=== PATIENT | female | born 1995 | race Asian ===

== ENCOUNTER 2018-07-24 12:34 | Outpatient (CLI) | payer OTHER | END 2018-07-24 17:25 | disposition home or self-care (01) | LOC: OBT 12:34 → L-D 12:35 → OBT 17:25 | DX: O62.9 Abnormality of forces of labor, unspecified (principal); Z3A.39 39 weeks gestation of pregnancy | CPT/HCPCS: 76815; 76818 ==

== ENCOUNTER 2018-07-25 05:01 | Inpatient (IN) | payer OTHER ==
[2018-07-25] MEDS ORDERED: LACTATED RINGER'S 1,000 ML IV (05:10)
[2018-07-25] MEDS ORDERED: LIDOCAINE 1% (MPF) 30 ML INJ (05:22)
[2018-07-25] MEDS: LACTATED RINGER'S 1,000 ML IV (05:25)
[2018-07-25] MEDS ORDERED: CARBOPROST 250 MCG INJ IM ×2 (05:30→09:00)
[2018-07-25] MEDS ORDERED: AMPICILLIN 2 GM/NS (PMX) 100 ML IV (05:30)
[2018-07-25] MEDS ORDERED: OXYTOCIN 30 UNITS/LR 500 ML IV ×2 (05:30→09:00)
[2018-07-25] MEDS ORDERED: MISOPROSTOL 200 MCG TAB PR ×2 (05:30→09:00)
[2018-07-25] MEDS ORDERED: METHYLERGONOVINE 0.2 MG INJ IM ×2 (05:30→09:00)
[2018-07-25 05:33] LABS: ADD MAN DIFF? NO
[2018-07-25 05:47] LABS: WHITE BLOOD COUNT 17.7 10^3/ul (4.8-10.8)
[2018-07-25 05:47] LABS: BASOPHILS % 0.2 % (0.0-2.0); EOSINOPHILS % 0.1 % (0.0-7.0); HEMATOCRIT 35.3 % (37.0-47.0); HEMOGLOBIN 11.4 g/dl (12.0-16.0); LYMPHOCYTES # 1.2 10^3/ul (0.8-2.9); LYMPHOCYTES % 6.8 % (15.0-51.0); MEAN CORPUSCULAR HEMOGLOBIN 27.1 pg (29.0-33.0); MEAN CORPUSCULAR HGB CONC 32.3 g/dl (32.0-37.0); MEAN PLATELET VOLUME 10.5 fl (7.4-10.4); MONOCYTE # 0.5 10^3/ul (0.3-0.9); NEUTROPHIL # 15.8 10^3/ul (1.6-7.5); NEUTROPHILS % 89.2 % (39.0-77.0); PLATELET COUNT 316 10^3/UL (140-415); RED CELL DISTRIBUTION WIDTH 19.2 % (11.5-14.5)
[2018-07-25 06:02] LABS: INR 0.94; PROTIME 12.7 Sec (11.9-14.9)
[2018-07-25 06:03] LABS: PARTIAL THROMBOPLASTIN TIME 22.7 Sec (23.0-35.0)
[2018-07-25] MEDS: OXYTOCIN 30 UNITS/LR 500 ML IV ×2 (06:03→06:15)
[2018-07-25] MEDS: LIDOCAINE 1% (MPF) 30 ML INJ INJ (06:17)
[2018-07-25] MEDS: MINERAL OIL LIGHT 10 ML VIAL TOP (06:17)
[2018-07-25 06:39] LABS: HEPATITIS B SURFACE ANTIGEN NEGATIVE (NEGATIVE)
[2018-07-25] MEDS: IBUPROFEN 600 MG TAB PO ×4 (07:16→23:35)
[2018-07-25] MEDS ORDERED: ACETAMINOPHEN 325 MG TAB PO (09:00)
[2018-07-25] MEDS ORDERED: HYDROCODONE/APAP (5/325) TAB PO (09:00)
[2018-07-25] MEDS ORDERED: DIBUCAINE 1% 30 GM OINT TOP (09:00)
[2018-07-25] MEDS ORDERED: AMPICILLIN 1 GM/NS (PMX) 50 ML IV (09:30)
[2018-07-25] MEDS: LANOLIN 7 GM TUBE TOP (11:32)
[2018-07-25] MEDS: WITCH HAZEL/GLYCERIN PAD PR (11:32)
[2018-07-25] MEDS: BENZOCAINE 20% 56 ML SPRAY TOP (11:33)
[2018-07-25] MEDS: LACTATED RINGER'S 1,000 ML IV* ×2 (12:50→19:00)
[2018-07-25] MEDS: SENNA/DOCUSATE NA (8.6MG/50MG) TAB PO ×2 (19:00→20:42)
[2018-07-25 20:52] LABS: RAPID PLASMA REAGIN NONREACTIVE (NR)
[2018-07-26] MEDS: IBUPROFEN 600 MG TAB PO ×3 (05:34→17:27)
[2018-07-26 08:07] LABS: ADD MAN DIFF? NO
[2018-07-26 08:09] LABS: BASOPHILS % 0.3 % (0.0-2.0); EOSINOPHILS # 0.2 10^3/ul (0.0-0.5); EOSINOPHILS % 1.6 % (0.0-7.0); HEMATOCRIT 30.2 % (37.0-47.0); HEMOGLOBIN 9.5 g/dl (12.0-16.0); LYMPHOCYTES # 2.8 10^3/ul (0.8-2.9); LYMPHOCYTES % 20.9 % (15.0-51.0); MEAN CORPUSCULAR HEMOGLOBIN 26.8 pg (29.0-33.0); MEAN CORPUSCULAR HGB CONC 31.5 g/dl (32.0-37.0); MEAN CORPUSCULAR VOLUME 85.1 fl (82.0-101.0); MEAN PLATELET VOLUME 10.8 fl (7.4-10.4); MONOCYTE # 0.9 10^3/ul (0.3-0.9); MONOCYTES % 6.7 % (0.0-11.0); NEUTROPHIL # 9.3 10^3/ul (1.6-7.5); NEUTROPHILS % 69.8 % (39.0-77.0); PLATELET COUNT 259 10^3/UL (140-415); RED BLOOD COUNT 3.55 10^6/ul (4.20-5.40); RED CELL DISTRIBUTION WIDTH 19.9 % (11.5-14.5)
[2018-07-26 08:09] LABS: WHITE BLOOD COUNT 13.4 10^3/ul (4.8-10.8)
[2018-07-26] MEDS: SENNA/DOCUSATE NA (8.6MG/50MG) TAB PO ×2 (08:33→22:03)
[2018-07-26] MEDS: FERROUS SULFATE (EC) 325 MG TAB PO ×2 (12:06→22:02)
[2018-07-27] MEDS: IBUPROFEN 600 MG TAB PO ×4 (00:35→17:18)
[2018-07-27] MEDS: SENNA/DOCUSATE NA (8.6MG/50MG) TAB PO (08:34)
[2018-07-27] MEDS: FERROUS SULFATE (EC) 325 MG TAB PO ×2 (08:34→12:18)
[2018-07-27] MEDS: DIPHTH/TET/ACEL PERTUSS (ADULT) 0.5 ML VIAL IM* (12:22)
== END 2018-07-27 18:15 | disposition home or self-care (01) | DRG 807 ==
LOC: OBT 05:01 → L-D 05:02 → OBT 05:05 → L-D 05:05 → PP1 07:50
PROVIDERS: Obstetrics & Gynecology
PROC: 10E0XZZ Delivery of Products of Conception, External Approach (ICD-10-PCS; principal; 2018-07-25)
PROC: 0KQM0ZZ Repair Perineum Muscle, Open Approach (ICD-10-PCS; 2018-07-25)
DX: O69.81X0 Labor and delivery complicated by cord around neck, without compression, not applicable or unspecified (principal); Z37.0 Single live birth; O70.1 Second degree perineal laceration during delivery; Z3A.39 39 weeks gestation of pregnancy
CPT/HCPCS: 85025; 85610; 85730; 86592; 86850; 86900; 86901; 87340; 90686; 90715

== ENCOUNTER 2018-09-15 19:33 | Emergency (ER) | payer OTHER ==
[2018-09-15] MEDS: ACETAMINOPHEN 500 MG TAB PO (21:06)
== END 2018-09-15 21:13 | disposition home or self-care (01) ==
LOC: FTE 19:33
DX: H01.00A Unspecified blepharitis right eye, upper and lower eyelids (principal); L08.9 Local infection of the skin and subcutaneous tissue, unspecified; H10.9 Unspecified conjunctivitis; H00.011 Hordeolum externum right upper eyelid; H00.012 Hordeolum externum right lower eyelid
CPT/HCPCS: 99283; Z7610

== ENCOUNTER 2019-05-03 09:24 | Emergency (ER) | payer SELFPAY, OTHER ==
[2019-05-03] MEDS: ACETAMINOPHEN 325 MG TAB PO (10:29)
== END 2019-05-03 10:43 | disposition home or self-care (01) ==
LOC: FTE 10:43
DX: K02.9 Dental caries, unspecified (principal)
CPT/HCPCS: 99282